=== PATIENT | male | born 1955 | race Caucasian/White ===

== ENCOUNTER 2023-05-20 17:13 | Emergency (ER) | payer MEDICARE ==
[~2023-05-20 17:13] MED LIST: AEC81 PO; ANAG.5 PO; LEVO50TA6 PO; LISI10TA24 PO; METO25 PO; OMEP40CA21 PO; PRAS10TA9 PO; ROSU10TA28 PO
[2023-05-24] MEDS ORDERED: PRED20TA3 PO (17:31)
[2023-05-24] MEDS ORDERED: MIRT7.5T11 PO (17:31)
== END 2023-05-20 19:42 | disposition left against medical advice (07) ==
LOC: EDH 17:13
DX: R50.9 Fever, unspecified (principal); Z53.21 Procedure and treatment not carried out due to patient leaving prior to being seen by health care provider